=== PATIENT | female | born 1965 | race Caucasian/White ===

== ENCOUNTER → 2016-10-27 | Outpatient (CLI) | payer OTHER ==
--- NOTE | 2016-10-27 09:10 | DX ---
Lumbar spine AP and lateral 0832 hours. History: Persistent low back pain for one month. Findings: Vertebral body heights are well-maintained. There is mild dextroscoliosis thoracolumbar pb ction. There is moderate intervertebral disk space narrowing at L4-L5 with moderate to marked narrowi ng at L5-S1. There are associated marginal osteophytes. Mild to moderate facet hypertrophy is also hollins spected at L5-S1. The remainder of the disk spaces are normal. There are no lytic or sclerotic osseou s lesions. Impression: 1. Degenerative disk disease at L4-L5 and L5-S1 as detailed above along with facet hypertrophy at L5- S1.
== END ==
LOC: FIMAGING 08:33
PROVIDERS: ATTEND Family Medicine
DX: M51.36 Other intervertebral disc degeneration, lumbar region (principal)

== ENCOUNTER → 2017-09-18 | Outpatient (CLI) | payer OTHER | LOC: FIMAGING 08:24 | PROVIDERS: ATTEND Family Medicine | DX: Z12.31 Encounter for screening mammogram for malignant neoplasm of breast (principal) | CPT/HCPCS: G0202 ==

== ENCOUNTER → 2018-10-09 | Outpatient (CLI) | payer OTHER | LOC: FIMAGING 12:53 | PROVIDERS: ATTEND Family Medicine | DX: Z12.31 Encounter for screening mammogram for malignant neoplasm of breast (principal) ==